=== PATIENT | male | born 2000 | race Caucasian/White ===

== ENCOUNTER 2024-05-15 11:44 | Emergency (ER) | payer SELFPAY ==
[2024-05-15 11:46] VITALS: BP 152/123; PULSE 92; RESP 18; TEMP 36.8; O2SAT 100; BMI 29.9
--- NOTE | 2024-05-15 12:03 | RAD_ITS ---
PROCEDURE: WRIST MIN 3 VIEWS; ELBOW MIN 3 VIEWS TECHNIQUE: 2 view(s) of the right wrist and elbow COMPARISON: None. FINDINGS: RIGHT WRIST: No visible fracture. No suspicious bone lesion. Normal alignment. Soft tissues are unremarkable. No radiopaque foreign body. RIGHT ELBOW : No visible fracture. No suspicious bone lesion. Normal alignment. Soft tissues are unremarkable. No radiopaque foreign body. RAD/Elbow min 3 Views IMPRESSION: No acute fracture or dislocation of the right wrist and elbow. Reading Location: [facility]
--- NOTE | 2024-05-15 12:03 | RAD_ITS ---
PROCEDURE: WRIST MIN 3 VIEWS; ELBOW MIN 3 VIEWS TECHNIQUE: 2 view(s) of the right wrist and elbow COMPARISON: None. FINDINGS: RIGHT WRIST: No visible fracture. No suspicious bone lesion. Normal alignment. Soft tissues are unremarkable. No radiopaque foreign body. RIGHT ELBOW : No visible fracture. No suspicious bone lesion. Normal alignment. Soft tissues are unremarkable. No radiopaque foreign body. RAD/Wrist min 3 Views IMPRESSION: No acute fracture or dislocation of the right wrist and elbow. Reading Location: [facility]
--- NOTE | 2024-05-15 12:03 | RAD_ITS ---
PROCEDURE: CHEST PA AND LATERAL REASON FOR EXAM: Chest pain TECHNIQUE: Frontal and lateral views of the chest. COMPARISON: None. FINDINGS: Cardiomediastinal silhouette is within normal limits. No focal consolidation. No pneumothorax. No pleural effusion. The bones are unremarkable. RAD/Chest PA and Lateral IMPRESSION: No acute cardiopulmonary process. Reading Location: [facility]
[2024-05-15 12:32] LABS: Carboxyhemoglobin Order 1.6
[2024-05-15 12:46] VITALS: BP 146/93; PULSE 78; RESP 16; O2SAT 99
[2024-05-15 12:55] LABS: Carboxyhemoglobin Order 1.6
[2024-05-15 12:59] VITALS: BP 143/98; PULSE 89; RESP 20; TEMP 37; O2SAT 98
[2024-05-15 13:30] VITALS: BP 128/91; PULSE 101; RESP 26; O2SAT 97
[2024-05-15] MEDS: Clindamycin HCl 150 MG Capsule 300 MG PO (13:45)
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
[2024-05-22 08:13] LABS: Carboxyhemoglobin Frac (CO) 1.6 % (0.0-1.5)
== END 2024-05-15 13:50 | disposition home or self-care (01) ==
PROVIDERS: Emergency Provider Emergency Medicine; PCP Family Medicine; Referring Provider Emergency Medicine; Visit Provider Emergency Medicine
DX: S61.511A Laceration without foreign body of right wrist, initial encounter (principal); S60.512A Abrasion of left hand, initial encounter; W26.8XXA Contact with other sharp object(s), not elsewhere classified, initial encounter; Z57.9 Occupational exposure to unspecified risk factor
CPT/HCPCS: 71046; 73080; 73110; 82374; 82375; 99285; A4216